=== PATIENT | male | born 1980 | race Caucasian/White ===

== ENCOUNTER 2016-09-25 05:28 | Emergency (ER) | payer OTHER ==
[2016-09-25 06:51] LABS: HEMOGLOBIN 12.1 gm/dl (14.0-17.5); RED BLOOD COUNT 4.06 M/UL (4.20-5.50); WHITE BLOOD COUNT 7.3 K/UL (4.5-11.0)
[2016-09-25 07:07] LABS: BUN/CREATININE RATIO 16 (0-10)
== END 2016-09-25 09:00 | disposition home or self-care (01) ==
LOC: ER1 05:28
PROVIDERS: Family Medicine
DX: K92.0 Hematemesis (principal); B19.20 Unspecified viral hepatitis C without hepatic coma; Z79.899 Other long term (current) drug therapy; F17.210 Nicotine dependence, cigarettes, uncomplicated
CPT/HCPCS: 36415; 80053; 85025; 85610; 86850; 86900; 86901; 99284; G0480

== ENCOUNTER 2021-04-15 11:31 | Emergency (ER) | payer OTHER ==
[~2021-04-15 11:31] MED LIST: [UNRECOGNIZED DRUG - REMARK]
[2021-04-15] MEDS ORDERED: NAPROSYN500 MG PO (11:55)
[2021-04-15] MEDS ORDERED: PENVEE K 500 M500 MG PO (11:55)
== END 2021-04-15 12:10 | disposition home or self-care (01) ==
LOC: ER1 11:31
DX: K02.9 Dental caries, unspecified (principal); K05.10 Chronic gingivitis, plaque induced; F17.200 Nicotine dependence, unspecified, uncomplicated; Z86.19 Personal history of other infectious and parasitic diseases; Z88.8 Allergy status to other drugs, medicaments and biological substances
CPT/HCPCS: 99282